=== PATIENT | male | born 1985 | race Caucasian/White ===

== ENCOUNTER 2021-06-24 11:56 | Emergency (ER) | payer OTHER ==
[2021-06-24 12:19] VITALS: BP 145/53; PULSE 78; TEMP 99; BMI 31.6
[2021-06-24] MEDS ORDERED: morphine CARPU-JECT 4 MG/1 ML DISP.SYRIN IVPUSH ONE (12:27)
[2021-06-24] MEDS ORDERED: morphine SULFATE 4 MG/ML VIAL ONE (12:40)
[2021-06-24 13:09] LABS: BASO % 4.1 % (0-2.0); EOS % 1.3 % (0-4.5); HEMATOCRIT 47.2 % (35.4-49); HEMOGLOBIN 16.3 GM/dl (11.7-16.9); LYMPH % 23.6 % (8-40); MCH 31.4 pg (25.7-33.7); MCHC 34.6 g/dl (32.0-35.9); MEAN CELL VOLUME 90.9 fl (80-96); MEAN PLT VOLUME 9.3 fl (7.5-11.1); MONO % 10.1 % (3.8-10.2); NEUT % 60.9 % (42.8-82.8); PLATELET COUNT 211 10^3/uL (134-434); RBC 5.19 M/mm3 (4.00-5.60); RDW 12.7 % (11.9-15.9); WHITE BLOOD COUNT 6.5 K/mm3 (4.0-10.8)
[2021-06-24 13:15] LABS: ALBUMIN 4.2 g/dl (3.4-5.0); MAGNESIUM 2.1 mg/dL (1.8-2.4); TOT PROT 7.3 g/dl (6.4-8.2)
[2021-06-24] MEDS ORDERED: KETOROLAC TROMETHAMINE 15 MG/ML VIAL IVPUSH ONE (14:34)
[2021-06-24] MEDS ORDERED: KETOROLAC TROMETHAMINE 15 MG/ML VIAL ONE (14:41)
== END 2021-06-24 14:56 | disposition home or self-care (01) ==
LOC: FER 11:56
PROC: 3E033NZ Introduction of Analgesics, Hypnotics, Sedatives into Peripheral Vein, Percutaneous Approach (ICD-10-PCS; principal; 2021-06-24)
PROC: 3E0333Z Introduction of Anti-inflammatory into Peripheral Vein, Percutaneous Approach (ICD-10-PCS; 2021-06-24)
DX: R10.31 Right lower quadrant pain (principal)
CPT/HCPCS: 36415; 74177-TC; 80053; 81003; 83735; 85025; 87086; 99284-25; Q9967

== ENCOUNTER 2025-06-15 02:20 | Emergency (ER) | payer OTHER ==
[2025-06-15 02:26] VITALS: TEMP 98.1; BMI 28.8
[2025-06-15] MEDS ORDERED: ACETAMINOPHEN INJECTION 100 ML ONE (03:07)
[2025-06-15] MEDS ORDERED: FAMOTIDINE 20 MG/50 ML IVPB 20 MG/50 ML MG IVPB ONE (03:08)
[2025-06-15] MEDS: ACETAMINOPHEN 1000 MG/100 ML BAG IVPB ONE ×2 (03:13→03:14)
[2025-06-15] MEDS: FAMOTIDINE 20 MG/50 ML IVPB 20 MG/50 ML MG IVPB ONE (03:14)
[2025-06-15 04:02] LABS: MCHC 34.0 g/dl (32.3-36.5); MEAN CELL VOLUME 87.9 fl (79.0-92.2); MEAN PLT VOLUME 10.2 fl (9.4-12.4); RDW 12.5 % (12.0-15.6)
[2025-06-15 04:35] LABS: GLUCOSE,RANDOM 116.0 mg/dL (74-106); TOT PROT 7.1 g/dl (6.4-8.2)
[2025-06-15 04:36] LABS: CO2 25.0 mmol/L (21-32)
[2025-06-15 04:38] LABS: ALK PHOS 58.0 U/L (40-150)
[2025-06-15 04:40] LABS: SGOT/AST 27.0 U/L (5-34); SGPT/ALT 47.0 U/L (0-55)
[2025-06-15 04:41] LABS: CREATININE 0.8 mg/dL (0.55-1.3)
[2025-06-15 05:03] LABS: HIV INTERPRETATION NEGATIVE (NEGATIVE)
[2025-06-15 05:46] LABS: HCV DIAGNOSTIC IN-HOUSE W/RFLX REACTIVE (NONREACTIVE)
[2025-06-15] MEDS ORDERED: ONDANSETRON *ODT* 4 MG TABLET ONE (06:25)
[2025-06-15] MEDS: ONDANSETRON *ODT* 4 MG TABLET SL ONE (06:26)
[2025-06-15] MEDS ORDERED: KETOROLAC TROMETHAMINE 30 MG/1 ML VIAL ONE (09:44)
[2025-06-15] MEDS: KETOROLAC TROMETHAMINE 30 MG/1 ML VIAL IM ONE (09:52)
[2025-06-15 09:54] VITALS: BP 125/82; PULSE 64; RESP 18
== END 2025-06-15 10:00 | disposition home or self-care (01) ==
LOC: JER 02:20
PROC: 3E033GC Introduction of Other Therapeutic Substance into Peripheral Vein, Percutaneous Approach (ICD-10-PCS; principal; 2025-06-15)
PROC: 3E033NZ Introduction of Analgesics, Hypnotics, Sedatives into Peripheral Vein, Percutaneous Approach (ICD-10-PCS; 2025-06-15)
PROC: 3E0233Z Introduction of Anti-inflammatory into Muscle, Percutaneous Approach (ICD-10-PCS; 2025-06-15)
DX: R10.11 Right upper quadrant pain (principal); R10.31 Right lower quadrant pain
CPT/HCPCS: 36415; 74177-TC; 76705-TC; 80053; 83690; 83735; 85027; 86803; 87389; 87522; 99285-25; Q0162; Q9967